=== PATIENT | male | born 1960 | race Caucasian/White ===

== ENCOUNTER → 2018-11-16 15:23 | Outpatient (CLI) | payer BC, SELFPAY ==
[2013-10-21 23:44] VITALS: BMI 23.7
--- NOTE | 2018-11-16 12:23 | COLBX_PTH ---
PATIENT: JEISON LLANES Jr. LOC: [facility] U#:[id number] AGE/SX: 64/M ROOM: RE11/16/[address]: Dr. Mp Abarca MD : [id number] BED: DIS: SPEC #: [id number] RECD: 11/16/18 15:11 STATUS: AURA REZoila #: [id number] VINNIE: 11/16/18 12:[address]: Mp Abarca DEPT: SURGICAL PATHOLOGY RECD BY: Cesar Bella ENTERED: 11/17/18 13:30 SP TYPE: COLON BX OT DR: Dr. Eduardo Caba, [facility] Tissues: A - Transverse colon B - Sigmoid colon biopsy Procedures: Surgery Specimen Level IV HEADER OPERATION: Colonoscopy with polypectomy PRE-OP DIAGNOSIS: History polyps TISSUE SUBMITTED: A - Transverse colon polyp, rule out adenoma, B - Sigmoid colon polyp, rule out adenoma MICROSCOPIC DIAGNOSIS A. Transverse colon polyp, biopsy: Fragments of tubular adenoma. B. Sigmoid colon polyp, biopsy: Fragments of tubular adenoma. AM:lroin 11/18/18 MICROSCOPIC DESCRIPTION Slides are reviewed. GROSS DESCRIPTION A - Received in fixative is one container labeled with the patient's name and designated transverse colon polyp. The specimen consists of multiple irregular fragments of light fritz soft tissue that in aggregate measure 1 x 0.5 x 0.1 cm. The specimen is totally submitted in one cassette. B - Received in fixative is one container labeled with the patient's name and designated sigmoid colon polyp. The specimen consists of three irregular fragments of light fritz soft tissue that in aggregate measure 0.6 x 0.2 x 0.1 cm. The specimen is totally submitted in one cassette. / SJ:lorin 11/17/18 TC:5 [facility]: [id number] [phone]
== END ==
PROVIDERS: Family Provider Family Medicine; PCP Family Medicine; Referring Provider Internal Medicine Gastroenterology; Visit Provider Internal Medicine Gastroenterology
DX: Z86.010 Personal history of colon polyps (principal)
CPT/HCPCS: 88305

== ENCOUNTER 2020-05-05 14:33 | Outpatient (RCR) | payer BC, SELFPAY ==
[2013-10-21 23:44] VITALS: BMI 23.7
[2020-05-05] MEDS: COVID-19 VACC, MRNA(PFIZER)/PF 30 MCG/0.3 ML SYRINGE IM (13:33)
[2020-05-26] MEDS: COVID-19 VACC, MRNA(PFIZER)/PF 30 MCG/0.3 ML SYRINGE IM (13:17)
== END 2020-08-01 23:59 ==
LOC: IMMUN 14:33
PROVIDERS: Visit Provider Family Medicine
DX: Z23 Encounter for immunization (principal)
CPT/HCPCS: 0001A; 0002A; 91300